=== PATIENT | male | born 1970 | race African-American/Black ===

== ENCOUNTER 2019-08-06 20:24 | Emergency (ER) | payer MEDICAID ==
[~2019-08-06] VITALS: Ht 177.8 cm; Wt 114.0 kg
[2019-08-06 23:47] VITALS: BP 130/83
== END 2019-08-06 23:49 | disposition home or self-care (01) ==
LOC: ER 20:24
DX: R41.82 Altered mental status, unspecified (principal); E11.9 Type 2 diabetes mellitus without complications; I10 Essential (primary) hypertension; F17.200 Nicotine dependence, unspecified, uncomplicated; F12.10 Cannabis abuse, uncomplicated
CPT/HCPCS: 82962; 99283

== ENCOUNTER 2019-08-28 17:00 | Emergency (ER) | payer MEDICAID ==
[~2019-08-28] VITALS: Ht 172.7 cm; Wt 131.0 kg
[2019-08-28 19:34] LABS: BASOPHILS % 0.6 % (0.0-2.0); EOSINOPHILS % 1.2 % (0.0-5.0); HEMATOCRIT. 42.9 % (42.0-52.0); HEMOGLOBIN. 14.3 g/dL (14.0-18.0); LYMPHOCYTES % 24.7 % (20.0-50.0); MEAN CORPUSCULAR HEMOGLOBIN 29.1 pg (28.0-32.0); MEAN CORPUSCULAR VOLUME 87.3 fL (80.0-94.0); MEAN PLATELET VOLUME 8.2 fl (7.4-10.4); NEUTROPHILS % 67.5 % (40.0-76.0); PLATELET 244 x1000/uL (130-400); RED BLOOD CELL COUNT 4.91 mill/uL (4.7-6.1); RED CELL DISTRIBUTION WIDTH 12.9 % (11.6-14.6)
[2019-08-28 19:38] LABS: CHLORIDE 104 mEq/L (98-107)
[2019-08-28 19:43] LABS: ETHANOL BLOOD < 10 mg/dL
[2019-08-28] MEDS ORDERED: SULFAMETHOXAZOLE/TRIMETHOPRIM 400/80MG TAB PO ONE (19:45)
[2019-08-28] MEDS ORDERED: CEPHALEXIN 250MG CAPSULE PO ONE (19:45)
[2019-08-28 19:56] LABS: CLARITY URINE CLEAR (CLEAR); COLOR URINE YELLOW (YELLOW); KETONES URINE TRACE (NEGATIVE); LEUKOCYTE ESTERASE URINE NEGATIVE (NEGATIVE); NITRITE URINE NEGATIVE (NEGATIVE); OCCULT BLOOD URINE NEGATIVE (NEGATIVE); PH URINE 5.5 (4.5-8.0); PROTEIN URINE NEGATIVE (NEGATIVE); SPECIFIC GRAVITY URINE 1.022 (1.005-1.030); UROBILINOGEN URINE 0.2 E.U./dL (0.2-1.0)
[2019-08-28 20:11] LABS: *BARBITURATES SCREEN URINE NEGATIVE (NEGATIVE); *COCAINE SCREEN URINE NEGATIVE (NEGATIVE); CANNABINOID URINE SCREEN NEGATIVE (NEGATIVE); METHADONE URINE SCREEN NEGATIVE (NEGATIVE); OPIATES URINE SCREEN NEGATIVE (NEGATIVE); PHENCYCLIDINE URINE SCREEN PRESUMTIVE POSITIVE (NEGATIVE)
[2019-08-28 20:12] LABS: *AMPHETAMINES SCREEN URINE NEGATIVE (NEGATIVE); *BENZODIAZEPINES SCREEN URINE NEGATIVE (NEGATIVE)
[2019-08-28] MEDS ORDERED: SODIUM CHLORIDE 0.9% 1,000 ML IV ONE (20:18)
[2019-08-28] MEDS ORDERED: PHENYTOIN SODIUM EXTENDED 100MG CAPSULE PO ONE (21:15)
[2019-08-28 23:30] VITALS: BP 137/74
== END 2019-08-28 23:58 | disposition home or self-care (01) ==
LOC: ER 17:00
DX: S01.501A Unspecified open wound of lip, initial encounter (principal); R56.9 Unspecified convulsions; I10 Essential (primary) hypertension; E11.9 Type 2 diabetes mellitus without complications; E78.00 Pure hypercholesterolemia, unspecified; F12.10 Cannabis abuse, uncomplicated; X58.XXXA Exposure to other specified factors, initial encounter; Y93.89 Activity, other specified; Y92.89 Other specified places as the place of occurrence of the external cause; Y99.8 Other external cause status
CPT/HCPCS: 36415; 71045; 80185; 80305; 80320; 81003; 84484; 93005; 99284; G0480

== ENCOUNTER 2020-01-13 23:32 | Emergency (ER) | payer OTHER, MEDICAID ==
[~2020-01-13] VITALS: Ht 177.8 cm; Wt 95.0 kg
[2020-01-13 23:35] VITALS: BP 142/81
[2020-01-14 00:23] LABS: BASOPHILS % 1.1 % (0.0-2.0); EOSINOPHILS % 1.7 % (0.0-5.0); HEMATOCRIT. 45.3 % (42.0-52.0); HEMOGLOBIN. 15.1 g/dL (14.0-18.0); LYMPHOCYTES % 35.4 % (20.0-50.0); MEAN CORPUSCULAR HEMOGLOBIN 29.5 pg (28.0-32.0); MEAN CORPUSCULAR VOLUME 88.5 fL (80.0-94.0); MEAN PLATELET VOLUME 7.4 fl (7.4-10.4); MONOCYTES % 7.8 % (2.0-8.0); PLATELET 188 x1000/uL (130-400); RED BLOOD CELL COUNT 5.12 mill/uL (4.7-6.1); RED CELL DISTRIBUTION WIDTH 13.4 % (11.6-14.6)
[2020-01-14 00:26] LABS: CLARITY URINE CLEAR (CLEAR); COLOR URINE YELLOW (YELLOW); KETONES URINE NEGATIVE (NEGATIVE); LEUKOCYTE ESTERASE URINE NEGATIVE (NEGATIVE); NITRITE URINE NEGATIVE (NEGATIVE); OCCULT BLOOD URINE NEGATIVE (NEGATIVE); PH URINE 5.5 (4.5-8.0); PROTEIN URINE 1+ (NEGATIVE); SPECIFIC GRAVITY URINE 1.022 (1.005-1.030)
[2020-01-14 00:28] LABS: CHLORIDE 106 mEq/L (98-107)
[2020-01-14 00:32] LABS: ETHANOL BLOOD < 10 mg/dL
[2020-01-14 00:43] LABS: *AMPHETAMINES SCREEN URINE NEGATIVE (NEGATIVE); *BARBITURATES SCREEN URINE NEGATIVE (NEGATIVE); *BENZODIAZEPINES SCREEN URINE NEGATIVE (NEGATIVE); *COCAINE SCREEN URINE NEGATIVE (NEGATIVE); METHADONE URINE SCREEN NEGATIVE (NEGATIVE); OPIATES URINE SCREEN NEGATIVE (NEGATIVE)
[2020-01-14 00:44] LABS: CANNABINOID URINE SCREEN PRESUMTIVE POSITIVE (NEGATIVE); PHENCYCLIDINE URINE SCREEN PRESUMTIVE POSITIVE (NEGATIVE)
== END 2020-01-14 01:17 | disposition home or self-care (01) ==
LOC: ER 23:32
DX: R41.82 Altered mental status, unspecified (principal); F16.10 Hallucinogen abuse, uncomplicated; R45.6 Violent behavior; E11.9 Type 2 diabetes mellitus without complications; I10 Essential (primary) hypertension
CPT/HCPCS: 36415; 80053; 80305; 80307; 80320; 80329; 81003; 82962; 85025; 93005; 99284; G0480

== ENCOUNTER 2021-10-20 04:26 | Emergency (ER) | payer OTHER ==
[~2021-10-20] VITALS: Ht 172.7 cm; Wt 128.8 kg
[2021-10-20 06:30] VITALS: BP 145/85
[2021-10-20 07:51] LABS: CLARITY URINE CLEAR (CLEAR); COLOR URINE YELLOW (YELLOW); KETONES URINE NEGATIVE (NEGATIVE); LEUKOCYTE ESTERASE URINE NEGATIVE (NEGATIVE); NITRITE URINE NEGATIVE (NEGATIVE); OCCULT BLOOD URINE NEGATIVE (NEGATIVE); PH URINE 5.5 (4.5-8.0); PROTEIN URINE NEGATIVE (NEGATIVE); SPECIFIC GRAVITY URINE 1.032 (1.005-1.030); UROBILINOGEN URINE 0.2 E.U./dL (0.2-1.0)
== END 2021-10-20 08:35 | disposition home or self-care (01) ==
LOC: ER 04:26
DX: N40.1 Benign prostatic hyperplasia with lower urinary tract symptoms (principal); R33.8 Other retention of urine; F12.10 Cannabis abuse, uncomplicated; F16.10 Hallucinogen abuse, uncomplicated; Z87.81 Personal history of (healed) traumatic fracture; Z98.1 Arthrodesis status
CPT/HCPCS: 81003; 99283

== ENCOUNTER 2021-10-20 10:37 | Emergency (ER) | payer OTHER | END 2021-10-20 12:56 | disposition left against medical advice (07) | LOC: ER 10:37 | DX: Z53.21 Procedure and treatment not carried out due to patient leaving prior to being seen by health care provider (principal) ==

== ENCOUNTER 2024-05-05 15:45 | Emergency (ER) | payer OTHER ==
[~2024-05-05] VITALS: Ht 180.3 cm; Wt 130.0 kg
[~2024-05-05 15:45] MED LIST: AMLO5TAB88 PO; APIX5TAB PO; FAMO20TA8 PO; FURO40TA5 PO; LIP40 PO; PHEN-434 MT; PHEN100C4 PO; SPIR25TA PO; TAMS-11 PO
[2024-05-05 15:54] VITALS: O2SAT 98
[2024-05-05] MEDS: LEVETIRACETAM 500MG PREMIX 100 ML IV ONE ×2 (16:00)
[2024-05-05 16:43] LABS: CARBON DIOXIDE 26 mEq/L (21-32); CHLORIDE 104 mEq/L (98-107); POTASSIUM 4.4 mEq/L (3.5-5.1); SODIUM 136 mEq/L (136-145)
[2024-05-05 16:44] LABS: CALCIUM 10.2 mg/dL (8.7-10.4)
[2024-05-05 16:49] LABS: CREATININE 1.3 mg/dL (0.6-1.3); GLUCOSE 156 mg/dL (70-105); TROPONIN I HIGH SENSITIVITY 12 ng/L (3.0-53); UREA NITROGEN BLOOD 12 mg/dL (9-23)
[2024-05-05 16:50] LABS: ALANINE AMINOTRANSFERASE 24 IU/L (10-49); ALBUMIN 4.9 g/dL (3.2-4.8); ASPARTATE AMINOTRANSFERASE 25 IU/L (<34)
[2024-05-05 16:51] LABS: BILIRUBIN TOTAL 0.6 mg/dL (0.1-1.0); CREATINE KINASE 130 IU/L (46-171); PROTEIN TOTAL 8.1 g/dL (6.0-8.3)
[2024-05-05] MEDS: LACTATED RINGERS 1,000 ML IV SCH (16:51)
[2024-05-05 16:57] LABS: BASOPHILS % 0.6 % (0.0-2.0); EOSINOPHILS % 0.7 % (0.0-5.0); HEMATOCRIT. 46.4 % (42.0-52.0); HEMOGLOBIN. 15.3 g/dL (14.0-18.0); LYMPHOCYTES % 18.1 % (20.0-50.0); MEAN CORPUSCULAR HEMOGLOBIN 29.4 pg (28.0-32.0); MEAN CORPUSCULAR HGB CONC 32.9 g/dL (31.0-37.0); MEAN CORPUSCULAR VOLUME 89.5 fL (80.0-94.0); MEAN PLATELET VOLUME 7.5 fl (7.4-10.4); MONOCYTES % 5.6 % (2.0-8.0); PLATELET 300 x1000/uL (130-400); RED BLOOD CELL COUNT 5.19 mill/uL (4.7-6.1); RED CELL DISTRIBUTION WIDTH 13.7 % (11.6-14.6); WHITE BLOOD COUNT 11.9 x1000/uL (4.5-11.0)
[2024-05-05 18:29] LABS: ACETAMINOPHEN < 2 ug/mL (10-30); TROPONIN I HIGH SENSITIVITY 10 ng/L (3.0-53)
[2024-05-05 18:32] LABS: ETHANOL BLOOD < 10 mg/dL (<10)
[2024-05-05 19:06] VITALS: TEMP 98.8
[2024-05-05] MEDS: ACETAMINOPHEN 325MG TABLET PO ONE (20:41)
[2024-05-05 21:40] VITALS: BP 146/86; PULSE 78; RESP 18
[2024-05-05] MEDS ORDERED: IOHEXOL-350 100 ML BOTTLE ONE ×2 (23:52→23:53)
== END 2024-05-05 22:09 | disposition admitted as inpatient to this hospital (09) ==
LOC: ER 15:45
DX: R41.82 Altered mental status, unspecified (principal); R51.9 Headache, unspecified; R07.89 Other chest pain; F12.10 Cannabis abuse, uncomplicated; E11.9 Type 2 diabetes mellitus without complications; I10 Essential (primary) hypertension; Z79.899 Other long term (current) drug therapy
CPT/HCPCS: 80053; 80307; 80329; 80320; 82550; 85025; 84484; 36415; 71045; 71275; 70450; 74177; 93005; 96365; 96366; 99291; Q9967; J1953; Z7610 ×2; G0480

== ENCOUNTER 2024-07-03 17:07 | Emergency (ER) | payer OTHER ==
[~2024-07-03] VITALS: Ht 165.1 cm; Wt 120.0 kg
[2024-07-03 17:21] VITALS: O2SAT 98
[2024-07-03] MEDS ORDERED: ACETAMINOPHEN 325MG TABLET PO ONE (19:45)
[2024-07-03 22:25] VITALS: TEMP 98
[2024-07-03] MEDS: ACETAMINOPHEN 325MG TABLET PO NR (22:25)
[2024-07-04 00:18] VITALS: BP 153/68; PULSE 73; RESP 20; O2SAT 97
== END 2024-07-04 00:37 | disposition home or self-care (01) ==
LOC: ER 17:07
DX: S09.90XA Unspecified injury of head, initial encounter (principal); R51.9 Headache, unspecified; G89.11 Acute pain due to trauma; E11.9 Type 2 diabetes mellitus without complications; I10 Essential (primary) hypertension; Z79.899 Other long term (current) drug therapy; Y08.89XA Assault by other specified means, initial encounter; Y93.89 Activity, other specified; Y92.89 Other specified places as the place of occurrence of the external cause; Y99.8 Other external cause status
CPT/HCPCS: 99284

== ENCOUNTER 2024-10-03 23:08 | Emergency (ER) | payer OTHER ==
[~2024-10-03] VITALS: Ht 177.8 cm; Wt 137.0 kg
[2024-10-03 23:14] VITALS: O2SAT 65
[2024-10-03] MEDS: SODIUM CHLORIDE 0.9% 1,000 ML IV ONE (23:47)
[2024-10-03 23:54] LABS: BASOPHILS % 0.3 % (0.0-2.0); EOSINOPHILS % 0.6 % (0.0-5.0); HEMATOCRIT. 44.2 % (42.0-52.0); HEMOGLOBIN. 13.8 g/dL (14.0-18.0); LYMPHOCYTES % 22.4 % (20.0-50.0); MEAN CORPUSCULAR HEMOGLOBIN 29.2 pg (28.0-32.0); MEAN CORPUSCULAR HGB CONC 31.2 g/dL (31.0-37.0); MEAN CORPUSCULAR VOLUME 93.7 fL (80.0-94.0); MEAN PLATELET VOLUME 7.4 fl (7.4-10.4); MONOCYTES % 7.2 % (2.0-8.0); NEUTROPHILS % 69.5 % (40.0-76.0); PLATELET 252 x1000/uL (130-400); RED BLOOD CELL COUNT 4.71 mill/uL (4.7-6.1); RED CELL DISTRIBUTION WIDTH 13.4 % (11.6-14.6); WHITE BLOOD COUNT 15.6 x1000/uL (4.5-11.0)
[2024-10-04] VITALS: BP 104/55; RESP 24; O2SAT 95
[2024-10-04 00:04] LABS: AMMONIA 34 uMol/L (<32)
[2024-10-04 00:21] LABS: CHLORIDE 103 mEq/L (98-107); POTASSIUM 4.2 mEq/L (3.5-5.1); SODIUM 137 mEq/L (136-145)
[2024-10-04 00:22] LABS: CALCIUM 9.5 mg/dL (8.7-10.4); CARBON DIOXIDE 13 mEq/L (21-32)
[2024-10-04 00:27] LABS: GLUCOSE 167 mg/dL (70-105)
[2024-10-04 00:28] LABS: ETHANOL BLOOD 27 mg/dL (<10); TROPONIN I HIGH SENSITIVITY 8 ng/L (3.0-53); UREA NITROGEN BLOOD 28 mg/dL (9-23)
[2024-10-04 00:29] LABS: ACETAMINOPHEN < 2 ug/mL (10-30); ALANINE AMINOTRANSFERASE 23 IU/L (10-49); ALBUMIN 4.4 g/dL (3.2-4.8); ASPARTATE AMINOTRANSFERASE 25 IU/L (<34)
[2024-10-04 00:30] LABS: BILIRUBIN TOTAL 0.3 mg/dL (0.1-1.0); PROTEIN TOTAL 7.5 g/dL (6.0-8.3)
[2024-10-04 00:32] LABS: THYROID STIMULATING HORMONE 5.05 uIU/mL (0.55-4.78)
[2024-10-04 00:40] LABS: BILIRUBIN DIRECT < 0.1 mg/dL (<=3.0)
[2024-10-04] MEDS: EPINEPHRINE 0.1MG/ML (1:10,000) 10ML SYR ONE (01:37)
[2024-10-04] MEDS: SODIUM BICARBONATE 8.4% 50MEQ/50ML SYR IV ONE (01:37)
[2024-10-04] MEDS ORDERED: PROPOFOL 10MG/ML 100ML 100 ML IV ONE (01:45)
[2024-10-04] MEDS ORDERED: NOREPINEPHRINE 8MG/250ML PMX 250 ML IV ONE (01:45)
[2024-10-04 01:56] LABS: INR 0.9; PROTHROMBIN TIME 9.9 sec (9.6-11.0)
[2024-10-04] MEDS ORDERED: SODIUM BICARBONATE 8.4% 50MEQ/50ML SYR IV ONE (01:58)
[2024-10-04 03:18] VITALS: PULSE 68
== END 2024-10-04 02:15 ==
LOC: ER 23:13
DX: R41.82 Altered mental status, unspecified (principal); I46.9 Cardiac arrest, cause unspecified; Z79.899 Other long term (current) drug therapy
CPT/HCPCS: 80076; 80048; 80307; 80329; 80320; 82140; 84443; 85025; 85610; 84484; 36415; 71045 ×2; 93005; 31500 ×2; 96360; 96361; 99291; 92950; J7030; J3490 ×2; J2704; Z7610 ×5; 94002; G0480